=== PATIENT | female | born 1955 | race Caucasian/White ===

== ENCOUNTER → 2017-02-28 | Outpatient (CLI) | payer OTHER ==
--- NOTE | 2017-02-28 13:46 | XR ---
EXAMINATION TYPE: XR chest 2V DATE OF EXAM: 02/28/2017 COMPARISON: NONE TECHNIQUE: PA and lateral views submitted. HISTORY: Preop FINDINGS: The lungs are clear and there is no pneumothorax, pleural effusion, or focal pneumonia. Arthropathy of the shoulders. Surgical changes in the abdomen. Hypertrophic and degenerative change of the spine . IMPRESSION: 1. No acute process.
[2017-02-28 13:50] LABS: Basophils % (A) 1 %; CH 29.6; CHCM 31.6; Eosinophils # (A) 0.2 k/uL (0-0.7); Eosinophils % (A) 3 %; HCT 44.8 % (34.0-46.0); HDW 2.26; HGB 14.5 gm/dL (11.4-16.0); Luc # (Auto) 0.08; Luc % (Auto) 1; Lymphocytes # (A) 1.2 k/uL (1.0-4.8); Lymphocytes % (A) 17 %; MCH 30.4 pg (25.0-35.0); MCHC 32.3 g/dL (31.0-37.0); MCV 94.3 fL (80.0-100.0); Mean Platelet Volume 7.8; Monocytes # (A) 0.3 k/uL (0-1.0); Monocytes % (A) 4 %; Neutrophils % (A) 74 %; RBC 4.75 m/uL (3.80-5.40); RDW 13.1 % (11.5-15.5); WBC 6.8 k/uL (3.8-10.6); WBC (Perox) 7.01
[2017-02-28 13:58] LABS: INR 1.1 (<1.2); Partial Thromboplastin Time 23.3 sec (22.0-30.0); Prothrombin Time 10.7 sec (9.0-12.0)
[2017-02-28 14:17] LABS: ALT 45 U/L (9-52); AST 23 U/L (14-36); Alkaline Phosphatase 126 U/L (38-126); Anion Gap 10 mmol/L; Blood Urea Nitrogen 19 mg/dL (7-17); Calcium 9.5 mg/dL (8.4-10.2); Carbon Dioxide 23 mmol/L (22-30); Chloride 106 mmol/L (98-107); Glucose 95 mg/dL (74-99); Non-African American GFR(MDRD) >60 (>60 ml/min/1.73 sqM); Potassium 4.4 mmol/L (3.5-5.1); Sodium 139 mmol/L (137-145); Total Protein 6.1 g/dL (6.3-8.2)
== END | disposition home or self-care (01) ==
LOC: LABPAT 12:37
PROVIDERS: ATTEND Orthopaedic Surgery
DX: Z01.818 Encounter for other preprocedural examination (principal); Z01.812 Encounter for preprocedural laboratory examination; M17.11 Unilateral primary osteoarthritis, right knee; Z51.81 Encounter for therapeutic drug level monitoring; Z79.01 Long term (current) use of anticoagulants
CPT/HCPCS: 71020; 80053; 85025; 85610; 85730; 87070

== ENCOUNTER 2017-03-13 06:33 | Inpatient (IN) | payer OTHER ==
--- NOTE | 2017-03-12 09:30 | HP ---
HISTORY AND PHYSICAL CHIEF COMPLAINT: Right knee pain. HISTORY OF PRESENT ILLNESS: The patient is a 61-year-old retired female who presents with progressive right knee pain secondary to osteoarthrosis despite extensive conservative treatment. She has tried previous medications and injections with only partial temporary relief. She notes the pain limits her normal function and activities. PAST MEDICAL HISTORY: Significant for hypothyroidism, hypertension, depression, atrial fibrillation, and arthritis. PAST SURGICAL HISTORY: Significant for right knee arthroscopy, left total knee arthroplasty, right carpal tunnel release. CURRENT MEDICATIONS: 1. Cymbalta. 2. Lisinopril. 3. Cardizem. 4. [place]. 5. Protonix. 6. Soma. 7. Spironolactone. 8. Synthroid. ALLERGIES: She notes allergies to LEVAQUIN and SULFA. FAMILY HISTORY: Significant for heart disease and cancer. SOCIAL HISTORY: Negative for current tobacco or alcohol use. REVIEW OF SYSTEMS: Sixteen point review of systems otherwise reviewed and is noncontributory. PHYSICAL EXAMINATION: On examination, the patient is approximately 5 feet, 2 inches, 221 pounds of endomorphic habitus. HEENT exam is nonfocal. Neck is supple. She has painless passive motion of her right hip. Straight leg raise is negative. Active motion right knee -6 to 95 degrees of flexion. She has a moderate effusion. She is tender about the medial joint line. Collaterals are stable, Yolanda's negative, Marj's is equivocal. She has genu varum alignment. Her distal neurovascular exam appears to be intact in the right lower extremity. Previous x-rays of the right knee obtained in the office show severe tricompartmental osteoarthrosis. IMPRESSION: 1. Right knee severe tricompartmental osteoarthrosis. 2. History of atrial fibrillation. RECOMMENDATIONS: I talked to the patient at length regarding her treatment options. At this point, she notes she is quite symptomatic and opts to proceed with surgery We will plan to proceed with a right total knee arthroplasty. Risks and benefits were discussed at length in layman's terms. We will institute DVT prophylaxis postoperatively. MMODL / IJN: [id number] /
[2017-03-12 10:23] VITALS: BMI 39.1
[~2017-03-13 06:33] MED LIST: ACETAMINOPHEN TAB 500 MG TAB PO ONE; MELOXICAM 7.5 MG TAB PO ONE; TRANEXAMIC ACID 1,000 MG in SODIUM CHLORIDE 0.9% 100 ML IVPB ONE; ceFAZolin 2 GM in SODIUM CHLORIDE 0.9% 100 ML IVPB ONE
[2017-03-13] MEDS ORDERED: HYDROmorphone 0.5 MG/0.5 ML SYRINGE IVP PRN ×2 (06:40→09:35)
[2017-03-13] MEDS ORDERED: ONDANSETRON 4 MG/2 ML VIAL IVP PRN ×2 (06:40→09:35)
[2017-03-13] MEDS ORDERED: LACTATED RINGERS 1,000 ML IV ONE ×2 (07:03→08:45)
[2017-03-13 07:07] LABS: Glucose,Whole Blood 88 mg/dL (75-99)
[2017-03-13] MEDS ORDERED: MIDAZOLAM 2 MG/2 ML VIAL IVP ONE (07:23)
[2017-03-13] MEDS ORDERED: fentaNYL (PF) 50 MCG/ML 2 ML AMP IVP ONE (07:23)
[2017-03-13] MEDS ORDERED: ONDANSETRON 4 MG/2 ML VIAL ONE (07:52)
[2017-03-13] MEDS ORDERED: TRANEXAMIC ACID 1,000 MG/10 ML VIAL ONE (07:52)
[2017-03-13] MEDS ORDERED: KETOROLAC 30 MG/ML 1 ML VIAL ONE (07:52)
[2017-03-13] MEDS ORDERED: PROPOFOL 10 MG/ML 20 ML VIAL IV ONE (07:52)
[2017-03-13] MEDS ORDERED: MIDAZOLAM 2 MG/2 ML VIAL ONE (07:52)
[2017-03-13] MEDS ORDERED: fentaNYL (PF) 50 MCG/ML 2 ML AMP ONE (07:52)
[2017-03-13] MEDS ORDERED: SODIUM CHLORIDE 0.9% 100 ML BAG ONE (07:52)
[2017-03-13] MEDS ORDERED: ROPIVACAINE 246.25 MG, EPINEPHrine 0.5 MG, KETOROLAC 30 MG, cloNIDine HCL/PF 80 MCG, WA... MISCELLANE ONE ×5 (07:59)
[2017-03-13] MEDS ORDERED: ROPIVACAINE 1,100 MG, SODIUM CHLORIDE 0.9% 330 ML MISCELLANE PRN ×2 (08:11)
--- NOTE | 2017-03-13 08:13 | P.ONQ ---
Anesthesiology Proc Note - PNB - Peripheral Nerve Block Performed Right Adductor Canal Infusion Time Out Performed: Yes Indication: Acute Post-Operative Pain, Analgesia Specifically requested for management of pain by : Robb Dang Sedation Type: Sedate with meaningful contact maintained Preparation: Sterile Prep Position: Supine Catheter Depth at Skin (cm): 8 Catheter: Indwelling Needle Types: Other (see comment) (pajunk) Needle Size: 100mm (4") Needle Gauge: 18 Technique: Ultrasound Injectate: 0.5% Ropivacaine (see comment for volume) (20cc) Blood Aspirated: No Pain Paresthesia on Injection Noted: No Resistance on Injection: Normal Events: Uneventful and Well Tolerated
[2017-03-13] MEDS ORDERED: ceFAZolin 3,000 MG in SODIUM CHLORIDE 0.9% IRRIGATIO 3,000 ML IRRIGATION ONE (08:37)
[2017-03-13] MEDS ORDERED: MAGNESIUM HYDROXIDE 2,400 MG/10 ML CUP PO PRN (09:35)
[2017-03-13] MEDS ORDERED: NALOXONE 0.4 MG/ML 1 ML VIAL IV PRN (09:35)
[2017-03-13] MEDS ORDERED: HYDROmorphone 1 MG/ML 1 ML SYRINGE IVP PRN (09:35)
[2017-03-13] MEDS ORDERED: traMADol 50 MG TAB PO PRN (09:35)
[2017-03-13] MEDS ORDERED: ACETAMINOPHEN TAB 325 MG TAB PO PRN (09:35)
[2017-03-13] MEDS ORDERED: HYDROcodone/APAP 7.5-325MG 1 EACH TAB PO PRN (09:35)
--- NOTE | 2017-03-13 09:41 | P.DS ---
Providers Date of admission: 03/13/17 06:33 Expected date of discharge: 03/15/17 Attending physician: Robb Dang Consults: 03/13/17 09:35 Consult Physician Routine Consulting Provider: Kristy Fernando Consult Reason/Comments: Medical management Do you want consulting provider notified?: Yes Primary care physician: Stated None Hospital Course: Date of admission: 03/13/2017 Date of discharge: 03/15/2017 Admission diagnosis: Status post right total knee arthroplasty Discharge diagnosis: Same Attending physician: Dr. Dang Surgical procedures: Right total knee arthroplasty Brief history: Patient is a 61-year-old female with a history of with progressive primary right knee osteoarthritis. At this point patient has failed conservative treatment measures and has opted to proceed with a elective right total knee arthroplasty. Hospital course: Details of patient's surgery can be found in operative report. Patient tolerated the procedure well and was subsequently transported to orthopedic floor. Patient's orthopeidc and medical care was provided daily. Patient had daily laboratory tests performed for evaluation of overall blood counts. Patient had daily physical therapy to include strengthening range of motion as well as education with walker ambulation. Patient had daily CPM usage as part of their physical therapy program. Patient was treated with Xarelto for their postoperative DVT prophylaxis during their inpatient stay. Patient was noted to have a relatively uneventful postoperative course. Patient reported satisfactory pain control with oral pain medications by postoperative day 0. Patient showed satisfactory progress with physical therapy. Patient moved steadily through the program and had no difficulty meeting the goals by postoperative day 2. Given patient's otherwise satisfactory course and having met physical therapy goals, plan is to discharge patient home on postoperative day 2. Discharge condition/disposition: Patient will be discharged home in stable condition. Discharge medications: Instructions are given on resumption of patient's normal daily medications per primary care recommendation, in addition patient will be prescribed [place] 10 mg/325 mg, Valium 10 mg, Vistaril 25 mg. Discharge instructions: 1. Wound care and infection precautions, [keep incision dry and covered while showering], no lotions, creams, moisturizers. No soaking, tubs, pools, hottubs. Do not scrub over the incision. 2. Weight-bear as tolerated with walker / cane until follow-up. 3. Ice and elevate when necessary. Do not exceed 20 minutes per hour with ice pack. 4. Utilize compression sleeve until seen at first follow up appointment. 5. Visiting nursing care. 6. Home physical therapy including home CPM. 7. Pain meds and anticoagulants per prescription. 8. Pain medication has potential to cause constipation. Increase oral fluid and fiber intake. Contact primary care provider if you have not had a bowel movement within 48 hours after discharge 9. No anti-inflammatory medication until discussed at first post operative visit, this including Motrin, Aleve, Mobic, Diclofenac. 10. Follow up in office at 2 weeks postop with Amador Silver PA-C 11. Follow up with your primary care doctor 7-10 days after discharge. 12. Contact [facility] with any questions, . Procedures: Right total knee arthroplasty Patient Condition at Discharge: Good Plan - Discharge Summary New Discharge Prescriptions: New Rivaroxaban [Xarelto] 10 mg PO DAILY #12 tab Diazepam [Valium] 5 mg PO BID #40 tab Hydrocodone/Acetaminophen [[place] 10-325] 1 - 2 each PO Q6H PRN #60 tab PRN Reason: Pain hydrOXYzine PAMOATE [Vistaril] 25 mg PO Q6HR #60 capsule No Action DULoxetine HCL [Cymbalta] 30 mg PO DAILY Spironolactone [Aldactone] 50 mg PO BID Levothyroxine Sodium [Synthroid] 25 mcg PO DAILY Levothyroxine Sodium [Synthroid] 200 mcg PO DAILY Pantoprazole Sodium 40 mg PO HS Cetirizine HCl [Zyrtec] 10 mg PO DAILY L.acidoph,Paracasei, B.lactis [Probiotic] 1 cap PO DAILY Fb8 Probiotic 1 cap PO TID Cholecalciferol (Vitamin D3) [Vitamin D3] 2,000 unit PO DAILY Calcium Carbonate [Calcium] 600 mg PO BID Vitamin B Complex 1 cap PO DAILY Promethazine [Phenergan] 25 mg PO TID PRN PRN Reason: Nausea Ondansetron [Zofran] 4 mg PO Q8HR PRN PRN Reason: Nausea Acetaminophen Tab [Tylenol Tab] 500 mg PO Q6H PRN PRN Reason: Pain Leaky Gut 1 cap PO TID Cholestyramine (with Sugar) [Cholestyramine Packet] 4 gm PO TID Discharge Medication List Cetirizine HCl [Zyrtec] 10 mg PO DAILY 06/03/15 [History] DULoxetine HCL [Cymbalta] 30 mg PO DAILY 06/03/15 [History] Levothyroxine Sodium [Synthroid] 25 mcg PO DAILY 06/03/15 [History] Levothyroxine Sodium [Synthroid] 200 mcg PO DAILY 06/03/15 [History] Pantoprazole Sodium 40 mg PO HS 06/03/15 [History] Spironolactone [Aldactone] 50 mg PO BID 06/03/15 [History] Acetaminophen Tab [Tylenol Tab] 500 mg PO Q6H PRN 03/12/17 [History] Calcium Carbonate [Calcium] 600 mg PO BID 03/12/17 [History] Cholecalciferol (Vitamin D3) [Vitamin D3] 2,000 unit PO DAILY 03/12/17 [History] Cholestyramine (with Sugar) [Cholestyramine Packet] 4 gm PO TID 03/12/17 [ History] Fb8 Probiotic 1 cap PO TID 03/12/17 [History] L.acidoph,Paracasei, B.lactis [Probiotic] 1 cap PO DAILY 03/12/17 [History] Leaky Gut 1 cap PO TID 03/12/17 [History] Ondansetron [Zofran] 4 mg PO Q8HR PRN 03/12/17 [History] Promethazine [Phenergan] 25 mg PO TID PRN 03/12/17 [History] Vitamin B Complex 1 cap PO DAILY 03/12/17 [History] Rivaroxaban [Xarelto] 10 mg PO DAILY #12 tab 03/13/17 [Rx] Diazepam [Valium] 5 mg PO BID #40 tab 03/15/17 [Rx] Hydrocodone/Acetaminophen [[place] 10-325] 1 - 2 each PO Q6H PRN #60 tab 03/15/17 [Rx] hydrOXYzine PAMOATE [Vistaril] 25 mg PO Q6HR #60 capsule 03/15/17 [Rx] Follow up Appointment(s)/Referral(s): [facility], [NON-STAFF] - Hieu Silver PAC [PHYSICIAN FRUIT OR NUT PICKER] - 2 Weeks Activity/Diet/Wound Care/Special Instructions: Orthopedic Discharge Instructions: 1. Wound care and infection precautions, keep incision dry and covered while showering, no lotions, creams, moisturizers. No soaking, pools, hot tubs. Do not scrub over incision. 2. Weight-bear as tolerated with walker / cane until follow-up. 3. Ice and elevate when necessary. Do not exceed 20 minutes per hour with ice pack. 4. Utilize compression sleeve until seen at first follow up appointment. 5. Visiting nursing care. 6. Home physical therapy including home CPM. 7. Pain meds and anticoagulants per prescription. 8. Pain medication has potential to cause constipation. Increase oral fluid and fiber intake. Contact primary care provider if you have not had a bowel movement within 48 hours after discharge. 9. No anti-inflammatory medication until discussed at first post operative visit, this including Motrin, Aleve, Mobic, Diclofenac. 10. Follow up in office at 2 weeks postop with Amador Silver PA-C 11. Follow up with your primary care doctor 7-10 days after discharge. 12. Contact [facility] with any questions, . Walker through [facility] [phone]. Discharge Disposition: HOME WITH HOME HEALTH SERVICES
[2017-03-13] MEDS: LACTATED RINGERS 1,000 ML IV SCH (09:47)
--- NOTE | 2017-03-13 10:12 | P.OP ---
Date of Procedure: 03/13/17 Preoperative Diagnosis: Right knee severe tricompartmental osteoarthrosis-primary Postoperative Diagnosis: Same Procedure(s) Performed: Right total knee znoszgvccxdi-cnkseutn-zqovrjye retaining Implants: [employer] size 5 cemented femoral component, size 4 cemented tibial component, 11 mm articular surface, 32 mm cemented patellar component. This is a cruciate retaining implant. Anesthesia: MAC, regional, local, spinal Surgeon: Robb Dang Geomagnetician #1: Hieu Silver Estimated Blood Loss (ml): 75 Pathology: other (Bone fragments) Condition: stable Disposition: PACU Indications for Procedure: The patient's a 61-year-old female presents with progressive right knee pain secondary to osteoarthrosis despite extensive conservative treatment. A discussion of the risks and benefits of operative intervention versus continued conservative measures was made with patient. She opted to proceed with surgery. Operative risks to include infection, neurovascular injury, development of blood clots, possible component loosening, possible component failure and need for subsequent procedures was discussed. Informed consent was obtained. Operative Findings: As below Description of Procedure: The patient was brought to the operating room, and after induction of spinal anesthesia the right lower extremity was prepped and draped in normal fashion. The tourniquet was inflated to 270 mmHg. A longitudinal incision extending 3 finger breaths above the superior pole of patella extending to the medial aspect the tibial tubercle was then made. The skin and subcutaneous tissues were divided sharply. Electrocautery was used for hemostasis. A medial parapatellar arthrotomy was performed. The medial soft tissues to include the superficial and deep portions of the medial collateral ligament as well as the medial hamstring tendons were elevated subperiosteally. A portion of the retropatellar fat pad was excised sharply. The patella was everted and the knee flexed. The anterior cruciate ligament was sacrificed. A starting hole was made in the distal femur 1 cm anterior to the posterior cruciate ligament origin. An intramedullary femoral guide was gently inserted planning on 5 valgus distal cut with 9 mm distal resection. A cutting block was pinned in place. The distal cut was then made. The posterior referencing sizing guide was utilized. 3 of external rotation was built into the system and verified off the trans-epicondylar axis and the posterior condyles. The femur sized most appropriate size 5. The cutting block was pinned in place. The anterior, posterior, and chamfer cuts were then made. The bone fragments were then removed. The trial size 5 femoral component was placed and had good medial to lateral and anterior to posterior fit. The distal peg holes were drilled. The trial component was removed. Attention was then paid towards preparing the proximal tibia. An extra medullary guide was utilized in line with the tibial shaft and second metatarsal distally. A 3 posterior slope cutting block was utilized. I planned on 2 mm resection from the medial compartment. The cutting block was pinned in place. The proximal tibial cut was then made. The bone was removed in one fragment. The tibia sized most appropriate size 4. The remnants of the medial and lateral menisci were excised the capsule junction with electrocautery. The trial femoral and tibial component were placed along with a 9 mm articular surface. I was able to obtain full flexion and extension with good stability with varus and valgus stress. After several flexion and extension cycles, the tibial rotation was marked in line with the medial one third of the tibial tubercle. Attention was then paid towards preparing the patella. A patella reamer was utilized taking this down to 14 mm of bone stock. A good flush cut was made. The patella sized most appropriately 32 mm. The peg holes were drilled. The trial components placed. The knee was taken through range of motion. I had good patellofemoral tracking with no hands technique. The trial components were then removed. The posterior osteophytes off the distal femur were carefully removed with a curved osteotome. The tibia was prepared in the appropriate rotation with appropriate drill and keel punch. The flexion and extension gaps were checked and felt to be symmetric. The posterior soft tissues were injected with ropivacaine. Pulsatile lavage was utilized. The bony surfaces were dried. Additional drill holes were made in the proximal medial tibia to facilitate cement interdigitation. The femoral component was then cemented in placed and was fully seated. Excess cement was removed. The tibial component was cemented place and was fully seated. Excess cement was removed. The trial 9 mm articular surface was placed. The patella component was cemented in placed and was fully seated. After the cement had sufficiently hardened, the knee was again taken through range of motion. I felt there was some laxity in both extension and flexion and therefore a size 11 articular surface was placed. I was able to obtain full flexion and extension with good stability with varus and valgus stress. The trial 11 mm articular surface was removed and the final one inserted. This was fully seated. Care was taken to avoid any soft tissue interposition. Pulsatile lavage was again utilized. The medial parapatellar arthrotomy was closed with #2 Ethibond suture. A deep drain was placed exiting laterally. The tourniquet was deflated with approximately 65 minutes total tourniquet time. The second dose of IV TXA was given. Final hemostasis was obtained with electrocautery. The deep subcutaneous tissues reapproximated interrupted 2-0 Vicryl sutures. The superficial subcutaneous tissues were reapproximated in a similar fashion. The skin was reapproximated with 3-0 subcuticular strata fix suture. Skin tape and adhesive was applied. A sterile dressing was applied. The patient was awoken from sedation and transferred to recovery room in good condition. Blood loss was estimated at 75 mL. No complications were incurred. Sponge and needle counts were correct at the end the case.
[2017-03-13 10:21] LABS: Glucose,Whole Blood 87 mg/dL (75-99)
--- NOTE | 2017-03-13 10:55 | XR ---
Limited right knee HISTORY: Postop right knee arthroplasty 2 views of the right knee correlated to previous exam 06/03/2014 Patient is status post right knee arthroplasty. There is anatomic alignment. Indwelling drain is pres ent. Lucency is seen in the soft tissues compatible with postop state. IMPRESSION: Orthopedic follow-up
[2017-03-13] MEDS ORDERED: ONDANSETRON 4 MG TAB PO PRN (13:54)
[2017-03-13] MEDS: HYDROcodone/APAP 7.5-325MG 1 EACH TAB PO PRN ×2 (14:43→20:53)
--- NOTE | 2017-03-13 15:22 | P.CONS ---
History of Present Illness - Reason for Consult Perioperative consultation management - History of Present Illness She was admitted for elective right knee arthroplasty, postoperative patient is clinically doing well and is passing gas. Patient denied any fever, chills, dysuria, nausea, vomiting, abdominal pain, cough. Review of Systems REVIEW OF SYSTEMS: CONSTITUTIONAL: No fever, no malaise, no fatigue. HEENT: No recent visual problems or hearing problems. Denied any sore throat. CARDIOVASCULAR: No chest pain, orthopnea, PND, no palpitations, no syncope. PULMONARY: No shortness of breath, no cough, no hemoptysis. GASTROINTESTINAL: No diarrhea, no nausea, no vomiting, no abdominal pain. Normoactive bowel sounds. NEUROLOGICAL: No headaches, no weakness, no numbness. HEMATOLOGICAL: Denies any bleeding or petechiae. GENITOURINARY: Denies any burning micturition, frequency, or urgency. MUSCULOSKELETAL/RHEUMATOLOGICAL: Denies any joint pain, swelling, or any muscle pain. ENDOCRINE: Denies any polyuria or polydipsia. The rest of the 14-point review of systems is negative. Past Medical History Past Medical History: Atrial Fibrillation, Diabetes Mellitus, Fibromyalgia, GERD /Reflux, Hypertension, Osteoarthritis (OA), Thyroid Disorder Additional Past Medical History / Comment(s): hx of a-fib hiatal hernia no diabetes or hypertension since gastric bypass polycystic kidneys History of Any Multi-Drug Resistant Organisms: None Reported Past Surgical History: Adenoidectomy, Bariatric Surgery, Cholecystectomy, Joint Replacement, Orthopedic Surgery, Tonsillectomy Additional Past Surgical History / Comment(s): CARPAL TUNNEL, D&C gatric bypass 2016 ercp with bile duct baloon and pancreatic stent 02-16-2017 Past Anesthesia/Blood Transfusion Reactions: No Reported Reaction Smoking Status: Former smoker - Past Family History Mother Family Medical History: Cancer Additional Family Medical History / Comment(s): colon Medications and Allergies Home Medications Medication Instructions Recorded Confirmed Type Cetirizine HCl [Zyrtec] 10 mg PO DAILY 06/03/15 03/13/17 History DULoxetine HCL [Cymbalta] 30 mg PO DAILY 06/03/15 03/13/17 History Levothyroxine Sodium [Synthroid] 25 mcg PO DAILY 06/03/15 03/13/17 History Levothyroxine Sodium [Synthroid] 200 mcg PO DAILY 06/03/15 03/13/17 History Pantoprazole Sodium 40 mg PO HS 06/03/15 03/13/17 History Spironolactone [Aldactone] 50 mg PO BID 06/03/15 03/13/17 History Acetaminophen Tab [Tylenol Tab] 500 mg PO Q6H PRN 03/12/17 03/13/17 History Calcium Carbonate [Calcium] 600 mg PO BID 03/12/17 03/13/17 History Cholecalciferol (Vitamin D3) 2,000 unit PO DAILY 03/12/17 03/13/17 History [Vitamin D3] Cholestyramine (with Sugar) 4 gm PO BID 03/12/17 03/13/17 History [Cholestyramine Packet] Fb8 Probiotic 1 cap PO TID 03/12/17 03/13/17 History HYDROcodone/APAP 7.5-325MG [[place] 1 tab PO TID PRN 03/12/17 03/13/17 History 7.5-325] L.acidoph,Paracasei, B.lactis 1 cap PO DAILY 03/12/17 03/13/17 History [Probiotic] Leaky Gut 1 cap PO TID 03/12/17 03/13/17 History Ondansetron [Zofran] 4 mg PO Q8HR PRN 03/12/17 03/13/17 History Promethazine [Phenergan] 25 mg PO TID PRN 03/12/17 03/13/17 History Vitamin B Complex 1 cap PO DAILY 03/12/17 03/13/17 History Rivaroxaban [Xarelto] 10 mg PO DAILY #12 tab 03/13/17 Rx Allergies Allergy/AdvReac Type Severity Reaction Status Date / Time levofloxacin [From Levaquin] Allergy Anaphylaxis Verified 03/13/17 10:41 Sulfa (Sulfonamide Allergy Rash/Hives Verified 03/13/17 10:41 Antibiotics) hydromorphone [From Dilaudid] AdvReac decreased Verified 03/13/17 10:41 heart rate, confused and felt awful NSAIDS (Non-Steroidal AdvReac Unknown Verified 03/13/17 10:41 Anti-Inflamma Physical Exam Vitals: Vital Signs Temp Pulse Pulse Resp BP BP Pulse Ox 03/13/17 15:00 98.0 F 60 16 112/60 99 03/13/17 13:25 60 131/78 03/13/17 13:10 49 L 107/54 03/13/17 12:55 45 L 120/58 03/13/17 12:40 69 109/71 03/13/17 12:25 54 L 111/59 03/13/17 12:10 51 L 109/55 03/13/17 11:55 58 L 109/58 03/13/17 11:40 55 L 112/56 03/13/17 11:25 54 L 108/59 03/13/17 11:10 98.1 F 52 L 16 108/55 98 03/13/17 10:45 67 16 107/57 98 03/13/17 10:30 52 L 16 105/58 97 03/13/17 10:15 50 L 16 102/50 100 03/13/17 10:00 97.2 F L 56 L 18 95/53 100 03/13/17 07:43 52 L 14 110/57 98 03/13/17 06:51 98.7 F 59 L 15 142/75 97 Intake and Output 03/13/17 03/13/17 03/13/17 06:59 14:59 22:59 Intake Total 2000 Output Total 175 Balance 1826 Intake: IV 2000 Output: Urine 100 Estimated Blood Loss 75 Other: Voiding Method Indwelling Catheter PHYSICAL EXAMINATION: GENERAL: The patient is alert and oriented x3, not in any acute distress. Well developed, well nourished. HEENT: Pupils are round and equally reacting to light. EOMI. No scleral icterus. No conjunctival pallor. Normocephalic, atraumatic. No pharyngeal erythema. No thyromegaly. CARDIOVASCULAR: S1 and S2 present. No murmurs, rubs, or gallops. PULMONARY: Chest is clear to auscultation, no wheezing or crackles. ABDOMEN: Soft, nontender, nondistended, normoactive bowel sounds. No palpable organomegaly. MUSCULOSKELETAL: Deferred to orthopedic surgery EXTREMITIES: No cyanosis, clubbing, or pedal edema. NEUROLOGICAL: Gross neurological examination did not reveal any focal deficits. SKIN: No rashes. Assessment and Plan Plan: #1 right knee arthroplasty: Patient is on xeralto, for anticoagulation for DVT prophylaxis post knee arthroplasty. #2 history of polycystic kidney disease for which patient is on spirinolactone which can be continued. #3 history of bariatric surgery patient is on multi provitamin supplementation which can be continued at this point of time. Patient was advised not use garlic until she is done was also. #4 depression: Continue with Cymbalta. #5 hypothyroidism continue with levothyroxine #6 gastroesophageal reflux disease for which patient is on Protonix which will be continued #7 hypertension Patient's medication reconciliation was done appropriate medications for her chronic medical problems were restarted.
[2017-03-13] MEDS: ceFAZolin 2 GM in SODIUM CHLORIDE 0.9% 100 ML IVPB SCH (16:58)
[2017-03-13] MEDS: PANTOPRAZOLE 40 MG TABLET PO SCH (20:52)
[2017-03-13] MEDS: SPIRONOLACTONE 25 MG TAB PO SCH (20:53)
[2017-03-13] MEDS ORDERED: SENNOSIDES-DOCUSATE SODIUM 1 EACH TAB PO SCH (21:00)
[2017-03-14] MEDS: ceFAZolin 2 GM in SODIUM CHLORIDE 0.9% 100 ML IVPB SCH (00:15)
[2017-03-14] MEDS: LACTATED RINGERS 1,000 ML IV SCH ×2 (02:37→20:56)
[2017-03-14] MEDS: ACETAMINOPHEN TAB 500 MG TAB PO PRN ×2 (04:25→18:34)
[2017-03-14] MEDS: LEVOTHYROXINE 100 MCG TAB PO SCH (05:59)
[2017-03-14] MEDS: LEVOTHYROXINE 25 MCG TAB PO SCH (05:59)
[2017-03-14] MEDS: HYDROcodone/APAP 7.5-325MG 1 EACH TAB PO PRN ×2 (06:22→11:20)
[2017-03-14 07:47] LABS: Basophils % (A) 0 %; CH 30.2; CHCM 31.7; Eosinophils # (A) 0.1 k/uL (0-0.7); Eosinophils % (A) 1 %; HCT 39.3 % (34.0-46.0); HDW 2.16; HGB 12.4 gm/dL (11.4-16.0); Luc # (Auto) 0.09; Luc % (Auto) 1; Lymphocytes % (A) 23 %; MCH 30.3 pg (25.0-35.0); MCHC 31.6 g/dL (31.0-37.0); MCV 95.9 fL (80.0-100.0); Mean Platelet Volume 7.3; Monocytes # (A) 0.5 k/uL (0-1.0); Monocytes % (A) 6 %; Neutrophils # (A) 6.1 k/uL (1.3-7.7); Neutrophils % (A) 69 %; RBC 4.09 m/uL (3.80-5.40); RDW 13.4 % (11.5-15.5); WBC 8.8 k/uL (3.8-10.6); WBC (Perox) 9.24
[2017-03-14] MEDS: RIVAROXABAN 10 MG TAB PO SCH (09:03)
[2017-03-14] MEDS: LORATADINE 10 MG TAB PO SCH (09:03)
[2017-03-14] MEDS: DULoxetine HCL 30 MG CAPSULE.DR PO SCH (09:04)
[2017-03-14] MEDS: SPIRONOLACTONE 25 MG TAB PO SCH ×2 (09:04→16:01)
--- NOTE | 2017-03-14 11:19 | P.PN ---
Progress Note - Text Progress Note Date: 03/14/17 0654 anesthesia POD 1. Patient is status post right TKR under spinal anesthesia with a right adductor canal catheter placed for postoperative pain relief. With ropivacaine 0.2% running at 8 mL/h patient's VAS is 2, 4. Catheter site is clean dry and intact.
[2017-03-14] MEDS: hydrOXYzine PAMOATE 25 MG CAP PO PRN ×2 (11:20→21:02)
--- NOTE | 2017-03-14 11:58 | P.PN ---
Subjective Progress Note Date: 03/14/17 Principal diagnosis: Status post right total knee arthroplasty Patient is seen today resting in her hospital bed, she appears comfortable. Did have some increase in pain the night, we've adjusted her medication slightly. She denies any headaches, lightheadedness, chest pain or shortness of breath. Objective - Vital Signs Vital signs: Vital Signs Temp 98.2 F 03/14/17 07:00 Pulse 56 L 03/14/17 07:00 Resp 16 03/14/17 07:00 BP 111/67 03/14/17 07:00 Pulse Ox 96 03/14/17 07:00 Intake & Output 03/13/17 03/14/17 03/14/17 18:59 06:59 18:59 Intake Total 2000 999 Output Total 795 2205 750 Balance 1206 -1205 -750 Weight 100.244 kg Intake: IV 2000 Intake, IV Titration 500 Amount Lactated Ringers 1,000 ml 500 @ 50 mls/hr IV .Q20H RAHEL Rx#:[id number] Oral 500 Output: Drainage 120 180 Right Knee 120 180 Urine 600 2025 750 Uretheral (Dickinson) 750 Estimated Blood Loss 75 Other: Voiding Method Indwelling Catheter Indwelling Catheter - Exam Right lower extremity: Incision is clean, dry, and intact. The prineo tape is in good condition. There is minimal soft tissue swelling and ecchymosis surrounding the medial and lateral aspects of the incision. Calf is soft, no tenderness with palpation. Plantar flexion, dorsiflexion, EHL, FHL are intact. Sensory exam to light touch throughout the extremity is intact, dorsal pedis pulses 2+. - Labs CBC & Chem 7: 03/14/17 06:37 Assessment and Plan Plan: Assessment: 1. Postop day #1 status post right total knee arthroplasty Plan: 1. Pain control, will adjust medication 2. Continue with therapy and use of CPM 3. Ice and elevate/daily dressing changes 4. Encourage incentive spirometer 5. GI and DVT prophylaxis, checking on co-pay for Xarelto 6. Medical recommendations 7. Discharge planning: Patient likely will be discharged home in the next day or two Time with Patient: Less than 30
[2017-03-14] MEDS ORDERED: HYDROcodone/APAP 10-325MG 1 EACH TAB PO PRN (15:40)
[2017-03-14] MEDS: HYDROcodone/APAP 10-325MG 1 EACH TAB PO PRN ×2 (15:58→20:59)
[2017-03-14] MEDS: CHOLESTYRAMINE (WITH SUGAR) 4 GM PACKET PO SCH ×2 (15:58→20:47)
[2017-03-14] MEDS: DIAZEPAM 5 MG TAB PO PRN (16:19)
[2017-03-14] MEDS: PANTOPRAZOLE 40 MG TABLET PO SCH (20:48)
[2017-03-15] MEDS: DIAZEPAM 5 MG TAB PO PRN ×3 (01:07→14:21)
[2017-03-15] MEDS: hydrOXYzine PAMOATE 25 MG CAP PO PRN ×3 (02:06→15:34)
[2017-03-15] MEDS: HYDROcodone/APAP 10-325MG 1 EACH TAB PO PRN ×3 (02:06→15:34)
[2017-03-15] MEDS: LEVOTHYROXINE 100 MCG TAB PO SCH (06:11)
[2017-03-15] MEDS: LEVOTHYROXINE 25 MCG TAB PO SCH (06:11)
[2017-03-15] MEDS: ACETAMINOPHEN TAB 500 MG TAB PO PRN ×2 (06:11→12:35)
[2017-03-15] MEDS: RIVAROXABAN 10 MG TAB PO SCH (08:29)
[2017-03-15] MEDS: LORATADINE 10 MG TAB PO SCH (08:29)
[2017-03-15] MEDS: DULoxetine HCL 30 MG CAPSULE.DR PO SCH (08:29)
[2017-03-15] MEDS: SPIRONOLACTONE 25 MG TAB PO SCH (08:30)
[2017-03-15] MEDS: LACTATED RINGERS 1,000 ML IV SCH (08:34)
--- NOTE | 2017-03-15 09:39 | P.PN ---
Subjective Progress Note Date: 03/15/17 Principal diagnosis: Status post right total knee arthroplasty Patient is seen today resting in her hospital bed, she appears comfortable. Pain is better controlled today. She denies any headaches, lightheadedness, chest pain or shortness of breath. Objective - Vital Signs Vital signs: Vital Signs Temp 98.5 F 03/15/17 07:00 Pulse 53 L 03/15/17 07:00 Resp 12 03/15/17 07:00 BP 135/62 03/15/17 07:00 Pulse Ox 97 03/15/17 07:00 Intake & Output 03/14/17 03/15/17 03/15/17 18:59 06:59 18:59 Intake Total 1000 Output Total 1750 500 Balance -1750 500 Weight 100.244 kg Intake: Oral 1000 Output: Urine 1750 500 Uretheral (Dickinson) 750 Other: Voiding Method Indwelling Catheter # Voids 1 1 - Exam Right lower extremity: Incision is clean, dry, and intact. The prineo tape is in good condition. There is minimal soft tissue swelling and ecchymosis surrounding the medial and lateral aspects of the incision. Calf is soft, no tenderness with palpation. Plantar flexion, dorsiflexion, EHL, FHL are intact. Sensory exam to light touch throughout the extremity is intact, dorsal pedis pulses 2+. - Labs CBC & Chem 7: 03/14/17 06:37 Assessment and Plan Plan: Assessment: 1. Postop day #2 status post right total knee arthroplasty Plan: 1. Pain control, will adjust medication 2. Continue with therapy and use of CPM 3. Ice and elevate/daily dressing changes 4. Encourage incentive spirometer 5. GI and DVT prophylaxis, discharge home on Xarelto 10mg 6. Medical recommendations 7. Discharge planning: Patient will be discharged home today Time with Patient: Less than 30
[2017-03-15] MEDS: CHOLESTYRAMINE (WITH SUGAR) 4 GM PACKET PO SCH (12:39)
[2017-03-15 15:55] VITALS: BP 135/82; PULSE 59; RESP 16; TEMP 98.3
--- NOTE | 2017-03-15 17:25 | P.PN ---
Subjective Progress Note Date: 03/14/17 Progress note being dictated for Dr. Kellogg. Interval history: This a 61-year-old female s/p elective right knee arthroplasty. Pain uncontrolled during the night, pain management adjusted as per orthopedics. Doing better this morning, sitting up in chair. Denies lightheadedness dizziness or focal deficits. Denies chest pain, palpitations or increasing shortness of breath. Passing flatus, no bowel movement. Objective - Vital Signs Vital signs: Vital Signs Temp 97.9 F 03/14/17 14:35 Pulse 58 L 03/14/17 14:35 Resp 17 03/14/17 14:35 BP 120/69 03/14/17 14:35 Pulse Ox 98 03/14/17 14:35 Intake & Output 03/14/17 03/14/17 03/15/17 06:59 18:59 06:59 Intake Total 1000 Output Total 2205 1750 Balance -1205 -1750 Weight 100.244 kg Intake: Intake, IV Titration 500 Amount Lactated Ringers 1,000 ml 500 @ 50 mls/hr IV .Q20H RAHEL Rx#:[id number] Oral 500 Output: Drainage 180 Right Knee 180 Urine 2024 1750 Uretheral (Dickinson) 750 Other: Voiding Method Indwelling Catheter # Voids 1 - Exam GENERAL: The patient is alert and oriented x3, no acute distress. Well developed, well nourished. HEENT: Pupils are round and equally reacting to light. EOMI. No scleral icterus. No conjunctival pallor. Normocephalic, atraumatic. No pharyngeal erythema. CARDIOVASCULAR: S1 and S2 present. No murmurs, rubs, or gallops. PULMONARY: Chest is clear to auscultation, no wheezing or crackles. ABDOMEN: Soft, nontender, nondistended, normoactive bowel sounds. No palpable organomegaly. MUSCULOSKELETAL: Deferred to orthopedic surgery EXTREMITIES: No cyanosis, clubbing, or pedal edema. NEUROLOGICAL: Gross neurological examination did not reveal any focal deficits. SKIN: No rashes. - Labs CBC & Chem 7: 03/14/17 06:37 Assessment and Plan Plan: #1 right knee arthroplasty: Patient is on xeralto, for anticoagulation for DVT prophylaxis post knee arthroplasty. #2 history of polycystic kidney disease #3 history of bariatric surgery #4 depression #5 hypothyroidism #6 gastroesophageal reflux disease #7 hypertension Plan: Continue on current medication regime , PPI, monitoring and symptomatic treatment. Increase ambulation with PT as per orthopedics. Aggressive pulmonary toileting, incentive spirometer reinforced. Anticoagulation and pain management as per orthopedics. Discharge planning in progress for tomorrow as per orthopedics. Follow-up with PCP in 1 week. The impression and plan of care has been dictated as directed. : I performed a history and examination of this patient, discussed the same with the dictator. I agree with the dictator's note ,documented as a scribe. Any additional findings or plans will be noted.
--- NOTE | 2017-03-15 17:30 | P.PN ---
Subjective Progress Note Date: 03/15/17 Progress note being dictated for Dr. Fernando 03/14/17 Interval history: This a 61-year-old female s/p elective right knee arthroplasty. Pain uncontrolled during the night, pain management adjusted as per orthopedics. Doing better this morning, sitting up in chair. Denies lightheadedness dizziness or focal deficits. Denies chest pain, palpitations or increasing shortness of breath. Passing flatus, no bowel movement. 03/15/2017 Pain better controlled. Ambulating with physical therapy, tolerating exertion well. Denies lightheadedness or dizziness. No focal deficits. Denies chest pain or palpitations. Denies shortness of breath. Good diet intake, consuming 50% . Denies nausea or vomiting. Passing flatus, no bowel movement. Objective - Vital Signs Vital signs: Vital Signs Temp 98.5 F 03/15/17 07:00 Pulse 53 L 03/15/17 07:00 Resp 12 03/15/17 07:00 BP 135/62 03/15/17 07:00 Pulse Ox 97 03/15/17 07:00 Intake & Output 03/14/17 03/15/17 03/15/17 18:59 06:59 18:59 Intake Total 1000 Output Total 1750 500 Balance -1750 500 Weight 100.244 kg Intake: Oral 1000 Output: Urine 1750 500 Uretheral (Dickinson) 750 Other: Voiding Method Indwelling Catheter # Voids 1 1 - Exam GENERAL: The patient is alert and oriented x3, sitting up in chair, no acute distress. Well developed, well nourished. HEENT: Pupils are round and equally reacting to light. EOMI. No scleral icterus. No conjunctival pallor. Normocephalic, atraumatic. No pharyngeal erythema. CARDIOVASCULAR: S1 and S2 present. No murmurs, rubs, or gallops. PULMONARY: Chest is clear to auscultation, no wheezing or crackles. ABDOMEN: Soft, nontender, nondistended, normoactive bowel sounds. No palpable organomegaly. MUSCULOSKELETAL: Deferred to orthopedic surgery EXTREMITIES: No cyanosis, clubbing, or pedal edema. NEUROLOGICAL: Gross neurological examination did not reveal any focal deficits. SKIN: No rashes. - Labs CBC & Chem 7: 03/14/17 06:37 Assessment and Plan Plan: #1 right knee arthroplasty: Patient is on xeralto, for anticoagulation for DVT prophylaxis post knee arthroplasty. #2 history of polycystic kidney disease #3 history of bariatric surgery #4 depression #5 hypothyroidism #6 gastroesophageal reflux disease #7 hypertension Plan: Continue on current medication regime , PPI, monitoring and symptomatic treatment. Aggressive pulmonary toileting, maintain incentive spirometer at home: q1h X 10, [place].. Anticoagulation and pain management as per orthopedics. Discharge planning in progress for today as per orthopedics. Follow-up with PCP in 1 week. The impression and plan of care has been dictated as directed. : I performed a history and examination of this patient, discussed the same with the dictator. I agree with the dictator's note ,documented as a scribe. Any additional findings or plans will be noted.
== END 2017-03-15 16:20 | disposition home health service (06) | DRG 470 ==
LOC: 2ORMAIN 06:33 → 3SUR 09:35
PROVIDERS: ADMIT Orthopaedic Surgery; ATTEND Orthopaedic Surgery
PROC: 0SRD069 Replacement of Left Knee Joint with Oxidized Zirconium on Polyethylene Synthetic Substitute, Cemented, Open Approach (ICD-10-PCS; principal; 2017-03-13 08:00)
DX: M17.11 Unilateral primary osteoarthritis, right knee (principal); I10 Essential (primary) hypertension; I48.91 Unspecified atrial fibrillation; E03.9 Hypothyroidism, unspecified; E11.9 Type 2 diabetes mellitus without complications; F32.9 Major depressive disorder, single episode, unspecified; M25.761 Osteophyte, right knee; K21.9 Gastro-esophageal reflux disease without esophagitis; M79.7 Fibromyalgia; Z96.652 Presence of left artificial knee joint; Z79.01 Long term (current) use of anticoagulants; Z87.891 Personal history of nicotine dependence; Z79.891 Long term (current) use of opiate analgesic; Z79.899 Other long term (current) drug therapy; Z88.1 Allergy status to other antibiotic agents; Z88.2 Allergy status to sulfonamides; Z82.49 Family history of ischemic heart disease and other diseases of the circulatory system; Z80.9 Family history of malignant neoplasm, unspecified; Z87.19 Personal history of other diseases of the digestive system; Z90.49 Acquired absence of other specified parts of digestive tract; Z98.84 Bariatric surgery status; Z80.0 Family history of malignant neoplasm of digestive organs; Z88.8 Allergy status to other drugs, medicaments and biological substances
CPT/HCPCS: 85025; 88300; 93005

== ENCOUNTER → 2019-05-29 | Outpatient (CLI) | payer BC ==
--- NOTE | 2019-05-29 10:17 | CT ---
EXAMINATION TYPE: CT abdomen wo/w con DATE OF EXAM: 05/29/2019 COMPARISON: NONE HISTORY: 63-year-old female History of renal cysts and Adrenal mass TECHNIQUE: Contiguous axial scanning of the abdomen before and after administration of 100 ml Isovue 300 IV contrast. Delayed images through the kidneys and coronal/sagittal reconstructions performed. CT DLP: 2160.8 mGycm Automated exposure control for dose reduction was used. FINDINGS: Heart normal size without pericardial. Lung bases clear without pleural effusion. Liver enlarged measuring 20.8 cm. A subcentimeter hypodensity within the inferior right liver lobe is too small for accurate CT characterization, probable cyst. Portal venous system is patent. No biliar y ductal dilatation. Cholecystectomy clips. Post surgical changes of Anamaria-en-Y gastric bypass. There is a 2.1 cm right adrenal nodule. Noncontrast density of 11 Hounsfield units makes this indeter minate. Postcontrast density of 68 Hounsfield units and delayed phase density of 20 Hounsfield units. Absolute washout is calculated at 84% compatible with a benign adrenal adenoma. Hilar splenule. Pancreas shows a small 9 mm cystic lesion along the anterior pancreatic head. A one-y ear follow-up pancreas MRI can reassess. The centrally located 5.6 cm benign right renal cyst. Dominant 7.9 cm left renal cyst with additional adjacent cysts measuring up to 6.4 cm. This have an overall benign appearance but a complex cyst wit h internal septations measuring up to 10.1 cm on coronal series is difficult to exclude and follow-up can be performed in 6-12 months. No suspicious enhancing internal components or thickened septations are identified. No dilated small bowel, free fluid, or free air. No mesenteric or retroperitoneal lymphadenopathy. Co uple prominent 9 mm right paramedian mesenteric lymph nodes, coronal image 59 and axial image 47 are nonspecific, probably reactive/post inflammatory. Moderate stool burden. No pericolonic inflammatory change. Bones: Hypertrophic facet arthropathy with grade 1, nearly grade 2 anterolisthesis at L4-L5. Anterior endplate spondylosis lower thoracic spine. IMPRESSION: 1. ABSOLUTE WASHOUT CALCULATION IS COMPATIBLE WITH A BENIGN 2.1 CM RIGHT ADRENAL ADENOMA. 2. BILATERAL RENAL CYSTS WHICH APPEAR LARGELY BENIGN. HOWEVER, ON THE LEFT, THERE COULD BE MULTIPLE A DJACENT CYSTS VERSUS A LARGER CYST WITH THIN INTERNAL SEPTATIONS MEASURING UP TO 10.1 CM. FOLLOW-UP I N 6-12 MONTHS TO REASSESS.
== END | disposition home or self-care (01) ==
LOC: RADCTMAIN 07:50
PROVIDERS: ATTEND Physician Assistant
DX: N28.1 Cyst of kidney, acquired (principal); D35.01 Benign neoplasm of right adrenal gland; Q44.6 Cystic disease of liver
CPT/HCPCS: 74170; Q9967

== ENCOUNTER → 2020-01-08 | Outpatient (CLI) | payer BC ==
--- NOTE | 2020-01-08 15:50 | US ---
EXAMINATION TYPE: US transvaginal DATE OF EXAM: 01/08/2020 COMPARISON: NONE CLINICAL HISTORY: N939 ABN UTERINE BLEEDING,N950 POST MENOPAUSAL BLEEDING. Hx of endometrial ablation and cervical polyps removed. TECHNIQUE: Transvaginal (TV) Transvaginal sonographic images were medically necessary per order and to better assess the following anatomy: endometrium Date of LMP: post menopausal EXAM MEASUREMENTS: Uterus: 6.5 x 5.3 x 3.5 cm Endometrial Stripe: 0.3 cm Right Ovary: 1.5 x 1.2 x 0.7 cm Left Ovary: 1.5 x 1.0 x 1.0 cm 1. Uterus: Anteverted ; multiple uterine fibroids noted with largest at upper myometrium= 1.0 x 1.0 x 1.0cm; hyperechoic focus noted mid myometrium = 0.3 x 0.3 x 0.2cm calcification. 2. Endometrium: thickness is wnl for post menopause patient 3. Right Ovary: wnl 4. Left Ovary: wnl 5. Bilateral Adnexa: wnl 6. Posterior cul-de-sac: wnl Technologist mendez few small hypoechoic lesions thought to reflect fibroids throughout the uterus jessica ng with dystrophic calcifications. Endometrial stripe is not thickened. Ovaries small in size consistent with patient's chronologic age. IMPRESSION: Suspect small intrauterine fibroids. No suspicious recurrent endometrial thickening.
== END | disposition home or self-care (01) ==
LOC: RADUSWWP 14:51
PROVIDERS: ATTEND Family Medicine
DX: N93.9 Abnormal uterine and vaginal bleeding, unspecified (principal); N95.0 Postmenopausal bleeding
CPT/HCPCS: 76830

== ENCOUNTER → 2020-01-13 | Outpatient (CLI) | payer MEDICARE, BC ==
[2020-01-13 15:37] LABS: African American GFR (CKD) >90 (>60 ml/min/1.73 sqM); Blood Urea Nitrogen 24 mg/dL (7-17); Non-African American GFR(CKD) >90 (>60 ml/min/1.73 sqM)
--- NOTE | 2020-01-13 16:41 | CT ---
EXAMINATION TYPE: CT abdomen wo/w con DATE OF EXAM: 01/13/2020 HISTORY: f/u adrenal mass, renal cysts. Cystic disease of liver. CT DLP: 1760mGycm Automated Exposure Control for Dose Reduction was Utilized. CONTRAST: CT scan of the abdomen is performed with oral and without and with IV Contrast, patient injected with 100 mL of Isovue 300. Adrenal gland protocol. COMPARISON: Prior CT abdomen May 29, 2019. FINDINGS: LUNG BASES: No significant abnormality is appreciated. LIVER/GB: Mild hepatomegaly with prominent right hepatic lobe redemonstrated. Stable subcentimeter hy podense lesion right hepatic lobe seen best series 6 image 36 presumed benign. Similar subcentimeter hypodense lesion left hepatic dome image 6 series 6 stable in retrospect presumed benign. No new conc erning masses or ductal dilatation. Cholecystectomy clips are redemonstrated. PANCREAS: Possible tiny cyst or hypodense lesion anterior pancreatic head seen best axial image 27 se malik 3. Lesion presumed benign. SPLEEN: There is 11 mm splenule axial image 21 series 6. ADRENALS: Stable 1.8 x 1.1 cm right adrenal low density jade with Hounsfield units near [address], enhancement to 51 on 1 minute postcontrast images and washout to 13 on 15 minute delayed aldair ges. Finding consistent with small benign lipid rich adenoma. No significant interval change. KIDNEYS: No renal calculi noncontrast images. Simple appearing 5.4 cm thin-walled cyst medially right kidney redemonstrated. There are 3-4 adjacent thin-walled cysts or lobulated single cyst with thin s epta scattered throughout the left kidney posteriorly upper to midpole level. There is additional 2.3 cm thin-walled cyst anteriorly midpole level left kidney. No concerning new solid or cystic renal ma ss. No hydronephrosis noted bilaterally as there is symmetric cortical medullary uptake and excretion noted from both kidneys. BOWEL: Surgical changes from gastric bypass in the epigastric region. No suspicious small and large b owel dilatation. Persistent mild diffuse colonic fecal prominence less prominent versus prior study. LYMPH NODES: No greater than 1cm abdominal lymph nodes are appreciated. OSSEOUS STRUCTURES: Facet arthropathy lower lumbar spine. Persistent grade 1 anterolisthesis L4 and L 5. Moderate multilevel anterior and lateral spurring in the lower thoracic spine. OTHER: No significant additional abnormality is seen. IMPRESSION: Stable thin-walled cysts or larger lobulated thin-walled cysts left kidney. Local mass ef fect remains present which is concerning. No suspicious thickened septa or solid nodularity. Other fi ndings stable without suspicious new or malignant lesion in the liver, kidneys, or bilateral adrenal glands.
== END | disposition home or self-care (01) ==
LOC: RADCTMAIN 14:46
PROVIDERS: ATTEND Family Medicine
DX: N28.89 Other specified disorders of kidney and ureter (principal); D35.01 Benign neoplasm of right adrenal gland; G62.9 Polyneuropathy, unspecified; K21.9 Gastro-esophageal reflux disease without esophagitis; M85.80 Other specified disorders of bone density and structure, unspecified site; E03.9 Hypothyroidism, unspecified
CPT/HCPCS: 82565; 84520; 74170; 36415; Q9967

== ENCOUNTER → 2020-02-23 | Outpatient (CLI) | payer BC, MEDICARE ==
--- NOTE | 2020-02-23 15:06 | MR ---
EXAMINATION TYPE: MR abdomen wo/w con DATE OF EXAM: 02/23/2020 COMPARISON: 01/13/2020 and 05/29/2019 HISTORY: 64-year-old female K86.2 Cyst of pancreas Technique: Multiplanar, multisequence images of the abdomen were obtained before and after administra tion of 13 mL intravenous Gadavist gadolinium contrast. FINDINGS: Heart normal size. No pleural effusion. Small hiatal hernia. Post surgical changes of Anamaria-en-Y gastric bypass better seen on CT. Liver enlarged measuring 23.9 cm, possibly due to the presence of a Patsy's lobe. No significant los s of signal on out of phase T1-weighted sequence to suggest fatty infiltration. Incidental benign 1.0 cm cyst left hepatic dome. 1.1 cm benign cyst inferior right liver lobe. No other focal liver lesion s seen. No biliary ductal dilatation. Gallbladder surgically absent. Portal venous system is patent. No focal pancreatic lesion is identified. No T2 weighted signal abnormality or peripancreatic fluid c ollection. On postcontrast sequences, a subtle 9 mm nonenhancing area along the right lateral aspect of the pancreatic head likely corresponds to the finding on CT. Given the lack of abnormal T2 signal, possible focus of fat intertwined within the pancreatic parenchyma is suspected. Bilateral renal cysts. Largest on the right is parapelvic measuring up to 5.3 cm. Multiple exophytic, clustered cysts posterior left kidney, versus complex cyst with internal septations largest measurin g up to 8.3 cm. The conglomerate measures up to 11.0 cm on coronal series versus 10.1 cm previously. Hilar splenule. Spleen normal size. Right adrenal gland nodularity measuring 2.1 x 1.2 cm on coronal series. This nodule shows signal los s on out of phase sequence compatible with a benign adrenal adenoma. Left adrenal gland within normal limits. Moderate stool burden. No upper abdominal lymphadenopathy, ascites fluid, or gross bowel abnormality. IMPRESSION: 1. A subtle 9 mm nonenhancing area along the right lateral aspect of the pancreatic head likely corre sponds to the finding on CT. Given the lack of T2 signal, possible focus of embedded fat within the p ancreatic parenchyma rather than a cyst. Consider a one-year follow-up MRI to reassess. 2. Redemonstrated large cluster of simple cysts versus a complex cyst with multiple thin septations. Conglomerate measurement up to 11.0 cm on coronal series versus 10.1 cm, previously. No suspicious no dularity or enhancing components. Reassess at the annual follow-up. Note that the patient may become symptomatic due to sheer size of this/these lesion(s). 3. Small hiatal hernia status post Anamaria-en-Y gastric bypass and known benign 2.1 cm right adrenal karo noma.
== END | disposition home or self-care (01) ==
LOC: RADMRIMAIN 10:26
PROVIDERS: ATTEND Internal Medicine
DX: K44.9 Diaphragmatic hernia without obstruction or gangrene (principal); D35.01 Benign neoplasm of right adrenal gland; K86.89 Other specified diseases of pancreas; K86.0 Alcohol-induced chronic pancreatitis; Z98.84 Bariatric surgery status
CPT/HCPCS: 74183; A9585

== ENCOUNTER → 2024-02-05 | Outpatient (CLI) | payer MEDICARE, OTHER ==
[2024-02-05 14:22] LABS: African American GFR (CKD) >90 (>60 ml/min/1.73 sqM); Blood Urea Nitrogen 17 mg/dL (7-17); Non-African American GFR(CKD) >90 (>60 ml/min/1.73 sqM)
--- NOTE | 2024-02-05 19:44 | CT ---
EXAMINATION TYPE: CT abdomen wo/w con DATE OF EXAM: 02/05/2024 COMPARISON: 01/23/2022 HISTORY: 68-year-old female Q44.6 CYSTIC DISEASE OF LIVER, [id number] BENIGN NEOPLASM, benign neoplasm of rt adrenal gland, cystic disease of liver, per pt growths throughout abdomen TECHNIQUE: Contiguous axial scanning of the abdomen before and after administration of 100 ml Isovue 300 IV contrast. Delayed images through the kidneys and coronal/sagittal reconstructions performed. CT DLP: 1767.3 mGycm Automated exposure control for dose reduction was used. FINDINGS: The heart is normal size without pericardial effusion. Coronary artery calcifications are n oted. Some strandy atelectasis in the lower lungs. No pleural effusion. There is a small hiatal hernia present with posterior change of Anamaria-en-Y gastric bypass. A 1.6 cm inferior right liver lobe cyst is slightly larger from 1.0 cm, previously. Portal venous sys tem is patent. No biliary ductal dilatation. Cholecystectomy clips. Right adrenal gland nodule measures 2.0 cm, unchanged. Noncontrast sequence shows low attenuation of 0 Hounsfield units. Findings compatible with a benign lipid rich adrenal adenoma. Left adrenal gland, spleen with inferior hilar splenule, and pancreas within normal limits. Bilateral renal cysts are present, largest centrally in the right kidney measuring 6.8 cm and possibl y multi locular cystic in the posterior left kidney measuring up to 9.9 x 9.6 cm, unchanged. No suspi cious solid lesion is identified. No hydronephrosis on either side. No dilated small bowel, free fluid, or free air. No mesenteric or retroperitoneal lymphadenopathy. Scattered mild to moderate stool. No pericolonic inflammatory change. Pelvis not imaged. Bones: Hypertrophic facet arthropathy mid to lower lumbar spine. Degenerative grade one/grade 2 anter olisthesis L4-L5. [facility] within the lower thoracic spine. Accentuated lumbar lordosis. IMPRESSION: 1. STABLE 2.0 CM LIPID RICH RIGHT ADRENAL ADENOMA COMPARED TO 2021. 2. MULTIPLE CYSTS WITHIN BOTH KIDNEYS MEASURING UP TO 6.8 CM ON THE RIGHT AND 9.9 CM ON THE LEFT. 3. AN INCIDENTAL 1.6 CM CYST INFERIOR RIGHT LIVER LOBE HAS INCREASED IN SIZE FROM 1.0 CM IN 2021. 4. SMALL HIATAL HERNIA. STATUS POST ANAMARIA-EN-Y GASTRIC BYPASS.
== END | disposition home or self-care (01) ==
LOC: RADCTMAIN 13:33
PROVIDERS: ATTEND Family Medicine
DX: Q44.6 Cystic disease of liver
CPT/HCPCS: 36415; 74170; 82565; 84520